=== PATIENT | female | born 1935 | race Hispanic/Latino ===

== ENCOUNTER → 2019-09-20 | Outpatient (CLI) | payer OTHER ==
[~2019-09-20] MED LIST: ACET1TAB12 PO; ATOR20TA65 PO; DOCU-275 PO; FAMO20TA8 PO; IBUP-2088 PO; METO25 PO; PHEN100C9 PO; PHENY100 PO
== END | disposition home or self-care (01) ==
LOC: SHCH 12:29
PROVIDERS: ATTEND Internal Medicine Cardiovascular Disease
DX: I70.201 Unspecified atherosclerosis of native arteries of extremities, right leg (principal); I87.2 Venous insufficiency (chronic) (peripheral)
CPT/HCPCS: 93925; 93970

== ENCOUNTER 2023-09-06 18:58 | Emergency (ER) | payer MEDICARE, OTHER ==
[~2023-09-06] VITALS: Ht 154.9 cm; Wt 66.2 kg
[~2023-09-06 18:58] MED LIST changes: +DOCU-270 PO; -DOCU-275 PO; +PHEN100C10 PO; -PHENY100 PO
[2023-09-06 19:53] LABS: BASOPHILS # (AUTO) 0.03 K/uL (0.00-0.20); BASOPHILS % (AUTO) 0.4 % (0.0-5.0); EOSINOPHILS # (AUTO) 0.11 K/uL (0.00-0.70); EOSINOPHILS % (AUTO) 1.4 % (0.0-8.0); HEMATOCRIT 35.3 % (36-48); IMMATURE GRANULOCYTE ABSOLUTE 0.04 K/uL (0-1); LYMPHOCYTES # (AUTO) 1.9 K/uL (1.0-4.8); LYMPHOCYTES % (AUTO) 24.1 % (21.0-51.0); MEAN CORPUSCULAR HEMOGLOBIN 31.4 pg (27.0-33.0); MEAN CORPUSCULAR HGB CONC 33.7 g/dL (32.0-36.0); MEAN CORPUSCULAR VOLUME 93.1 fL (79-99); MONOCYTES # (AUTO) 0.6 K/uL (0.1-1.0); MONOCYTES % (AUTO) 7.7 % (3.0-13.0); NEUTROPHILS # (AUTO) 5.3 K/uL (1.8-7.7); NEUTROPHILS % (AUTO) 65.9 % (40.0-77.0); PLATELET COUNT (AUTO) 160 K/uL (130-400); RED BLOOD CELL COUNT(AUTO) 3.79 MIL/uL (4.00-5.50); RED CELL DISTRIBUTION WIDTH 12.5 % (11.0-15.5)
[2023-09-06 20:05] LABS: POTASSIUM 3.9 mmol/L (3.5-5.1)
[2023-09-06 20:06] LABS: INR < 0.93 (0.85-1.15); PROTHROMBIN TIME 10.6 SEC (9.6-11.6)
[2023-09-06 20:07] LABS: PARTIAL THROMBOPLASTIN TIME 26.2 SEC (26.3-35.5)
[2023-09-06 20:12] LABS: ALBUMIN 3.6 g/dL (3.5-5.0); BILIRUBIN,TOTAL 0.2 mg/dL (0.2-1.0); TOTAL PROTEIN, SERUM 7.1 g/dL (6.0-8.3)
[2023-09-06] MEDS ORDERED: IOHEXOL-350 75 ML VIAL IV ONE (20:34)
[2023-09-06] MEDS ORDERED: IBUP-1493 PO (22:23)
[2023-09-06] MEDS ORDERED: CEPH500B PO (22:23)
[2023-09-06] MEDS ORDERED: IBUPROFEN 800 MG TAB PO ONE (22:30)
[2023-09-06] MEDS ORDERED: DIPH,PERTUSS(ACELL),TET VAC/PF 0.5 ML VIAL IM ONE (22:30)
[2023-09-06 22:47] VITALS: BP 148/76; PULSE 80; RESP 16; O2SAT 99
== END 2023-09-06 22:48 | disposition home or self-care (01) ==
LOC: EDH 18:58
DX: S01.111A Laceration without foreign body of right eyelid and periocular area, initial encounter (principal); R07.89 Other chest pain; E78.00 Pure hypercholesterolemia, unspecified; I10 Essential (primary) hypertension; W01.0XXA Fall on same level from slipping, tripping and stumbling without subsequent striking against object, initial encounter; Y93.89 Activity, other specified; Y92.89 Other specified places as the place of occurrence of the external cause; Y99.8 Other external cause status
CPT/HCPCS: 70450; 99284; 12013; 82550; 84484; 80053; 85025; 85610; 85730; 36415; 90715; 72125; 71260; 70486; Q9967